=== PATIENT | female | born 1930 | race Caucasian/White ===

== ENCOUNTER 2017-07-20 15:54 | Emergency (ER) | payer OTHER ==
[~2017-07-20] VITALS: Ht 162.5 cm; Wt 78.9 kg
[~2017-07-20 15:54] MED LIST: VICODIN 5/500 505 MG PO
== END 2017-07-20 17:27 | disposition home or self-care (01) ==
LOC: ED 15:54
DX: S50.12XA Contusion of left forearm, initial encounter (principal); S70.12XA Contusion of left thigh, initial encounter; R03.0 Elevated blood-pressure reading, without diagnosis of hypertension; Z88.0 Allergy status to penicillin; W18.30XA Fall on same level, unspecified, initial encounter; Y93.89 Activity, other specified; Y92.89 Other specified places as the place of occurrence of the external cause; Y99.8 Other external cause status

== ENCOUNTER → 2020-03-15 | Outpatient (CLI) | payer MEDICARE, OTHER ==
[~2020-03-15] MED LIST changes: +CARVEDILOL12.5 MG PO; +LISINOPRIL10 M1 PO; +SIMVASTATIN40 MG PO
== END | disposition home or self-care (01) ==
LOC: CARD 15:00
PROVIDERS: ATTEND Family Medicine
DX: R55 Syncope and collapse (principal)

== ENCOUNTER → 2020-07-20 | Outpatient (CLI) | payer OTHER, MEDICARE ==
[2020-07-20 14:47] LABS: HEMATOCRIT 41.1 % (37.0-47.0); MEAN CELL VOLUME 92.2 fl (81.0-99.0); MEAN CORPUSCULAR HGB 28.7 pg (27.0-31.0); MEAN CORPUSCULAR HGB CONC 31.1 g/dl (33.0-37.0); MEAN PLATELET VOLUME 10.2 fl (9.6-12.3); RED BLOOD COUNT 4.46 10*6/uL (4.10-5.10); RED CELL DISTRI WIDTH 14.1 % (0-14.5); WHITE BLOOD COUNT 7.5 10*3/uL (4.8-10.8)
[2020-07-20 15:17] LABS: ALBUMIN 3.3 gm/dl (3.1-4.5); CREATININE 1.14 mg/dL (0.55-1.02); TOTAL PROTEIN 7.8 gm/dL (6.4-8.2)
[2020-07-20 15:35] LABS: VITAMIN D, 25-HYDROXY 48.1 ng/mL (30-100)
== END | disposition home or self-care (01) ==
LOC: LAB 13:36
PROVIDERS: ATTEND Family Medicine
DX: E78.00 Pure hypercholesterolemia, unspecified (principal); I10 Essential (primary) hypertension; R53.83 Other fatigue; E55.9 Vitamin D deficiency, unspecified

== ENCOUNTER → 2020-10-10 | Outpatient (CLI) | payer OTHER, MEDICARE ==
[2020-10-10 09:52] LABS: HEMATOCRIT 40.7 % (37.0-47.0); MEAN CELL VOLUME 93.8 fl (81.0-99.0); MEAN CORPUSCULAR HGB 29.5 pg (27.0-31.0); MEAN CORPUSCULAR HGB CONC 31.4 g/dl (33.0-37.0); MEAN PLATELET VOLUME 10.3 fl (9.6-12.3); RED BLOOD COUNT 4.34 10*6/uL (4.10-5.10); RED CELL DISTRI WIDTH 13.8 % (0-14.5); WHITE BLOOD COUNT 6.6 10*3/uL (4.8-10.8)
[2020-10-10 10:07] LABS: ALBUMIN 3.4 gm/dl (3.1-4.5); ALKALINE PHOSPHATASE 66 U/L (45-117); BUN 10 mg/dl (7-24); CHLORIDE 105 mmol/L (98-107); CHOLESTEROL 193 mg/dL (<200); CPK 50 U/L (26-192); CREATININE 0.76 mg/dL (0.55-1.02); LDL CHOLESTEROL 112 mg/dL (9-159); POTASSIUM 4.2 mmol/L (3.5-5.1); SGOT/AST 15 IU/L (3-35); SGPT/ALT 16 U/L (12-78); SODIUM 140 mmol/L (136-145); TOTAL PROTEIN 7.9 gm/dL (6.4-8.2); TRIGLYCERIDES 62 mg/dl (<150)
== END | disposition home or self-care (01) ==
LOC: LAB 09:12
PROVIDERS: ATTEND Nurse Practitioner Family
DX: I10 Essential (primary) hypertension (principal); E55.9 Vitamin D deficiency, unspecified; E78.00 Pure hypercholesterolemia, unspecified